=== PATIENT | female | born 1960 | race Caucasian/White ===

== ENCOUNTER 2016-11-20 12:59 | Emergency (ER) | payer MEDICAID ==
[2016-11-20 13:13] VITALS: BP 136/72; PULSE 82; RESP 16; TEMP 98; O2SAT 98
[2016-11-20] MEDS: CEFTRIAXONE 1 GM PDS IM ONE (13:42)
[2016-11-20] MEDS: KETOROLAC TROMETHAMINE 30 MG/ML SOL IM ONE (13:43)
[2016-11-20] MEDS ORDERED: CEFTRIAXONE 1 GM PDS ONE (13:47)
[2016-11-20] MEDS ORDERED: KETOROLAC TROMETHAMINE 30 MG/ML SOL ONE (13:48)
[2016-11-20] MEDS ORDERED: LIDOCAINE HCL 1% MPF SOL ONE (13:48)
== END 2016-11-20 14:25 | disposition home or self-care (01) | DRG 159 ==
LOC: ED 12:59
DX: K04.7 Periapical abscess without sinus (principal)
CPT/HCPCS: 99283; J0696; J1885; J2001

== ENCOUNTER 2017-12-27 10:39 | Day surgery (SDC) | payer OTHER ==
[~2017-12-27 10:39] MED LIST: PROPOFOL 500 MG/50 ML EMU IV ONE
[2017-12-27] MEDS ORDERED: ALBUTEROL NEB SOL 2.5MG/3ML 1 VIAL SOL ONE (11:30)
[2017-12-27 11:56] VITALS: TEMP 97.7
[2017-12-27 12:26] VITALS: RESP 20; O2SAT 97
[2017-12-27 12:31] VITALS: BP 116/85; PULSE 69
== END 2017-12-27 13:14 | disposition home or self-care (01) | DRG 392 ==
LOC: SURG 10:39
PROVIDERS: ATTEND Internal Medicine Gastroenterology
DX: R10.13 Epigastric pain (principal); Q39.9 Congenital malformation of esophagus, unspecified; R13.10 Dysphagia, unspecified; K21.9 Gastro-esophageal reflux disease without esophagitis; K22.2 Esophageal obstruction; K44.9 Diaphragmatic hernia without obstruction or gangrene; L53.8 Other specified erythematous conditions; K31.9 Disease of stomach and duodenum, unspecified
CPT/HCPCS: J7613; J2704

== ENCOUNTER 2019-01-12 16:38 | Emergency (ER) | payer OTHER | END 2019-01-12 18:25 | disposition home or self-care (01) | LOC: ED 16:38 ==